=== PATIENT | female | born 1990 | race Caucasian/White ===

== ENCOUNTER → 2016-09-01 | Outpatient (REF) | payer OTHER ==
[~2016-09-01] MED LIST: ANUS2.5C2 TOP; MOTR200T44 PO; TYLE325T5 PO; VITAPRTA PO; prenatal vitamin PO
== END ==
LOC: M LAB REF 14:50
PROVIDERS: ATTEND Physician Assistant Medical
DX: N39.0 Urinary tract infection, site not specified (principal)